=== PATIENT | female | born 1960 | race Caucasian/White ===

== ENCOUNTER 2016-06-01 00:41 | Emergency (ER) | payer MEDICAID ==
--- NOTE | 2016-06-01 01:08 | ED Physician Chart ---
Chief Complaint/HPI - Patient Information Date Seen:: 06/01/16 Time Seen:: 01:00 Chief Complaint:: BODY ACHES History of Present Illness:: THIS IS A 55 YO FEMALE WITH TWO WEEKS OF FEVER ON AND OFF WITH CHILLS. SHE ALSO HAS CHEST CONGESTION WITH NASAL CONGESTION AND SINUS CONGESTION. SHE DENIES VOMITING AND DIARRHEA. SHE DENIES ANY HISTORY OF PNEUMONIA OR T.B. SHE DENIES DIABETES AND HEART DISEASE BUT ADMITS TO HYPERTENSION. Allergies:: Allergies Allergy/AdvReac Type Severity Reaction Status Date / Time No Known Allergies Allergy Verified 12/06/15 10:48 Vitals:: Vital Signs - 8 hr 06/01/16 00:52 Temp 99.9 F HR 135 RR 20 BP 144/83 O2 Sat % 95 Historian:: Patient Review:: Nurse's Note Reviewed Review of Systems - Review of Systems General/Constitutional: Fever, Chills, No weight loss, No weakness, No diaphoresis, No edema, No loss of appetite Skin: No skin lesions, No rash, No bruising Head: No headache, No light-headedness Eyes: No loss of vision, No pain, No diplopia ENT: No earache, Nasal drainage, Sore throat, No tinnitus Neck: No neck pain, No swelling, No thyromegaly, No stiffness, No mass noted Cardio Vascular: No chest pain, No palpitations, No PND, No orthopnea, No edema Pulmonary: SOB, Cough, No sputum, No wheezing GI: No nausea, No vomiting, No diarrhea, No pain, No melena, No hematochezia, No constipation, No hematemesis G/U: No dysuria, No frequency, No hematuria Musculoskeletal: Bone or joint pain, No back pain, No muscle pain Endocrine: No polyuria, No polydipsia Psychiatric: No prior psych history, No depression, No anxiety, No suicidal ideation Hematopoietic: No bruising, No lymphadenopathy Allergic/Immuno: No urticaria, No angioedema Neurological: No syncope, No focal symptoms, No weakness, No paresthesia, Headache, No seizure, No dizziness, No confusion, No vertigo Past Medical History - Past Medical History Obtainable: Yes Past Medical History: HTN Family History: None Social History: Smoker, No Alcohol, No Drug Use Surgical History: None Psychiatricy History: None Medication: Reviewed Family Medical History - Family Member Mother History Unknown: Yes Ethnicity: Non- Living Status: Still Living Hx Family Cancer: No Hx Family Coronary Artery Disease: No Hx Family Congestive Heart Failure: No Hx Family Hypertension: Yes Hx Family Stroke: No Hx Family Diabetes: No Hx Family Seizures: No Hx Family Dementia: No Hx Family AIDS: No Hx Family HIV: No Hx Family COPD: No Hx Family Hepatitis: No Hx Family Psychiatric Problems: No Hx Family Tuberculosis: No Physical Exam - Physical Examination General/Constitutional: Awake, Well-developed, well-nourished, Alert, No distress, GCS 15, Non-toxic appearing, Ambulatory Head: Atraumatic Eyes: Lids, conjuctiva normal, PERRL, EOMI Skin: Nl inspection, No rash, No skin lesions, No ecchymosis, Well hydrated, No lymphadenopathy ENMT: External ears, nose nl, Lips, teeth, gums nl Other ENMT comments:: THE POSTERIOR PHARYNX IS RED AND SWOLLEN THERE IS NASAL CONGESTION AND DRAINAGE Neck: Nontender, Full ROM w/o pain, No JVD, No nuchal rigidity, No bruit, No mass, No stridor Respiratory: Nl effort/Exclusion, Clear to Auscultation Other Respiratory comments:: THERE IS BILATERAL RHONCHI Cardio Vascular: RRR, No murmur, gallop, rubs, NL S1 S2 GI: No tenderness/rebounding/guarding, No organomegaly, No hernia, Normal BS's, Nondistended, No mass/bruits, No McBurney tenderness : No CVA tenderness Extremities: No tenderness or effusion, Full ROM, normal strength in all extremities, No edema, Normal digits & nails Neuro/Psych: Alert/oriented, DTR's symmetric, Normal sensory exam, Normal motor strength, Judgement/insight normal, Mood normal, Normal gait, No focal deficits Misc: normal gait, Normal back, No paraspinal tenderness ED Septic Shock - . Is Septic Shock (SBP<90, OR Lactate>4 mmol\L) present?: No - <6hrs of presentation: Vital Signs: Vital Signs - 8 hr 06/01/16 00:52 Temp 99.9 F HR 135 RR 20 BP 144/83 O2 Sat % 95 Reassessment (Disposition) - Reassessment Reassessment Condition:: Improved - Diagnosis Diagnosis:: ACUTE BRONCHITIS ACUTE PHARYNGITIS - Aftercare/Follow up Instructions Aftercare/Follow-Up Instructions:: Counseled pt regarding lab results/diagnosis & need follow up, Refer to Discharge Instructions, Counseled pt & family regarding lab results/diagnosis & need follow up - Patient Disposition Discharge/Transfer:: Home ED Discharge Plan - Patient Disposition Admit/Discharge/Transfer: PT DISCHARGED HOME Condition at Disposition: Improved
[2016-06-01 01:34] LABS: URINE BILIRUBIN SMALL (NEGATIVE); URINE BLOOD TRACE (NEGATIVE); URINE COLOR YELLOW; URINE GLUCOSE (UA) NEGATIVE (NEGATIVE)
[2016-06-01 01:35] LABS: URINE KETONE TRACE mg/dL (NEGATIVE); URINE PH 5.5; URINE PROTEIN 100 mg/dL (NEGATIVE)
[2016-06-01 01:36] LABS: URINE BACTERIA FEW /hpf (NONE SEEN); URINE EPITHELIAL CELLS MODERATE /lpf (FEW); URINE RBC 0-2 /hpf (0-5); URINE WBC 0-2 /hpf (0-5)
[2016-06-01 01:37] LABS: AMPHETAMINE URINE POSITIVE (NEGATIVE)
[2016-06-01 01:38] LABS: BARBITURATES URINE NEGATIVE (NEGATIVE)
== END 2016-06-01 01:50 | disposition home or self-care (01) ==
LOC: ER 00:41
DX: J20.9 Acute bronchitis, unspecified (principal); J02.9 Acute pharyngitis, unspecified; I10 Essential (primary) hypertension; F17.200 Nicotine dependence, unspecified, uncomplicated
CPT/HCPCS: 99284; 96372 ×2; 80300; 81001; J0696; J2930; Z7502

== ENCOUNTER 2016-06-02 14:51 | Inpatient (IN) | payer MEDICAID ==
--- NOTE | 2016-06-02 15:09 | ED Physician Chart ---
Chief Complaint/HPI - Patient Information Date Seen:: 06/02/16 Time Seen:: 14:59 Chief Complaint:: COUGH AND RESP DISTRESS X 5-6 DAYS History of Present Illness:: History 5-year-old female presents with a 5-6 day history of cough and respiratory distress. The patient has not had fever but did have chills starting yesterday. Patient has no chest pain. Respiratory distress is made worse by exertion. She is a smoker who gave it up one week ago. She has no prior history of CHF, pulmonary embolus, DVT, or cancer. No recent circumstances for immobilization. No peripheral edema. The cough is productive but the patient does not check the color of the sputum. She denies any hemoptysis. Allergies:: Allergies Allergy/AdvReac Type Severity Reaction Status Date / Time No Known Allergies Allergy Verified 12/06/15 10:48 Review of Systems - Review of Systems General/Constitutional: No fever, Chills, No weakness, No diaphoresis, No edema , Loss of appetite Skin: No skin lesions, No rash, No bruising Head: No headache, No light-headedness Eyes: No loss of vision, No diplopia ENT: No earache, No nasal drainage, No sore throat, Other (has congestive and in the nasal region.) Neck: No neck pain, No stiffness Cardio Vascular: No chest pain, No palpitations, No orthopnea, No edema Pulmonary: SOB, Cough, Sputum, Wheezing, Other (no hemoptysis.) GI: No nausea, No vomiting, No diarrhea, Pain (the patient has had pain in the epigastric region she associates with taking azithromycin..), No pain, No hematemesis G/U: No dysuria, No frequency, No hematuria Musculoskeletal: No bone or joint pain, No back pain Endocrine: No polyuria, No polydipsia Psychiatric: No prior psych history, No depression, No suicidal ideation Hematopoietic: No bruising, No lymphadenopathy Allergic/Immuno: No urticaria, No angioedema Neurological: No syncope, No focal symptoms, No weakness, No paresthesia, No headache, No seizure, No confusion, No vertigo Past Medical History - Past Medical History Past Medical History: HTN, Other (no history of CAD, CHF or DVT.) Social History: Smoker, No Drug Use, Employment:: No illicit drugs and occasional alcohol. Surgical History: None Psychiatricy History: None (patient takes an SHELLI inhibitor for her hypertension. ) Family Medical History - Family Member Mother History Unknown: Yes Ethnicity: Non- Living Status: Still Living Hx Family Cancer: No Hx Family Coronary Artery Disease: No Hx Family Congestive Heart Failure: No Hx Family Hypertension: Yes Hx Family Stroke: No Hx Family Diabetes: No Hx Family Seizures: No Hx Family Dementia: No Hx Family AIDS: No Hx Family HIV: No Hx Family COPD: No Hx Family Hepatitis: No Hx Family Psychiatric Problems: No Hx Family Tuberculosis: No Physical Exam - Physical Examination General/Constitutional: Well-developed, well-nourished, Alert, Non-toxic appearing, Ambulatory Other Gen/Cons comments:: The patient does not appear to be in respiratory distress and speaks in full sentences. Head: Atraumatic Eyes: Lids, conjuctiva normal, PERRL, EOMI Skin: Nl inspection, No rash, No skin lesions, No ecchymosis, No lymphadenopathy ENMT: External ears, nose nl, Lips, teeth, gums nl, Oropharynx nl, Tonsils nl Neck: Nontender, Full ROM w/o pain, No JVD, No nuchal rigidity, No mass, No stridor Respiratory: Nl effort/Exclusion Other Respiratory comments:: Patient has prolongation of the expiratory phase with associated diffuse wheezing throughout the lung crespo. Cardio Vascular: RRR, No murmur, gallop, rubs, NL S1 S2 Other Cardio Vascular comments:: Pulses are adequate in all 4 extremities. GI: No organomegaly, No hernia, Normal BS's, Nondistended, No mass/bruits, No McBurney tenderness Other GI comments:: Patient has mild tenderness without associated rebound or guarding in the epigastric region. : No CVA tenderness Extremities: No tenderness or effusion, Full ROM, normal strength in all extremities, No edema, Normal digits & nails Other Extremities comments:: Tenderness and no Deyanira's sign. Neuro/Psych: Alert/oriented, Normal sensory exam, Normal motor strength, Judgement/insight normal, Mood normal, Normal gait, No focal deficits Misc: Normal back, No paraspinal tenderness Labs/Radiology/EKG Results - Lab Results Results: Single view AP chest x-ray: This x-ray was reviewed by me and there is an equivocal infiltrate in the left lower lung zone. I requested that the radiologist review the chest x-ray and after doing so he recommended a 2 view repeat chest x-ray. The 2 view chest x-ray he felt it was more likely than not that the patient had an infiltrate in the left lower lung zone. No cardiomegaly and no CHF. No calcifications in the aortic arch and no mediastinal widening. No pneumothorax. Laboratory Tests 06/02/16 06/02/16 06/02/16 17:15 17:15 18:20 WBC 22.2 H* RBC 5.19 H Hgb 14.2 Hct 43.0 MCV 82.8 MCH 27.4 MCHC Differential 33.1 RDW 13.5 Plt Count 443 H MPV 8.5 Band Neutrophils % 10 Neutrophils (Manual) 75 Lymphocytes 10 L Monocytes 5 Eosinophils 0 Basophils 0 Platelet Estimate ADEQUATE Platelet Morphology NORMAL RBC Morph Micro Appear NORMAL Whole Bld Lactic Acid 1.98 C-Reactive Protein 8.20 H Influenza A (Rapid) Influenza B (Rapid) 06/02/16 18:50 WBC RBC Hgb Hct MCV MCH MCHC Differential RDW Plt Count MPV Band Neutrophils % Neutrophils (Manual) Lymphocytes Monocytes Eosinophils Basophils Platelet Estimate Platelet Morphology RBC Morph Micro Appear Whole Bld Lactic Acid C-Reactive Protein Influenza A (Rapid) NEG FOR INF A Influenza B (Rapid) NEG FOR INF B INTERPRETATION: marked leukocytosis in the 22,000 range. Whole blood lactic acid less than 2.0. Suggestive of sepsis but not septic shock. Assessment - Assessment General Assessment: CASE SUMMARY: Following the emergency department patient had no tachycardia or tachypnea. Blood pressure was in the high range and her temperature was 97.0. On evaluation of chest x-ray infiltrate was discovered in the left lower lung zone. A CBC was sent at approximately 5:40 PM received a call from the lab that her white blood cell count was in the 22,000 range. At that point in time a lactic acid was ordered and normal saline was ordered at a rate of 30 mL per KG over a two-hour period. There was difficulty obtaining an IV and the patient was given 2 g of ceftriaxone IM. The patient has already been on azithromycin which was started yesterday. The patient's primary physician will be contacted and arrangements will be made to admit the patient to a medical/surgical bed for further diagnostic evaluation and treatment. The patient felt much better after treated with nebulized albuterol and Atrovent. Pulse ox in the low 90's on room air. With supplemental oxygen pulse ox was in the high 90's. MDM for RESPIRATORY DISTRESS and COUGH: NOT CHF based on pt's history and exam and CXR didn't show pulmonary edema. NOT pulmonary embolism based on history and exam. Well's score of 1.5 (Pulse >100) is low risk for PE. NOT Pneumothorax basd othn negative CXR. ED Septic Shock - . Is Septic Shock (SBP<90, OR Lactate>4 mmol\L) present?: No Reassessment (Disposition) - Reassessment Reassessment Condition:: Improved - Diagnosis Diagnosis:: PNEUMONIA WITH LT LOWER LOB INFILTRATE. PROBABLE COPD. - Patient Disposition Discharge/Transfer:: Acute Care w/in this hosp ED Discharge Plan - Patient Disposition Admit/Discharge/Transfer: Acute Care w/in this hosp
[2016-06-02] MEDS ORDERED: Albuterol/Ipratropium Neb 3 ML AERS HHN ONE ×2 (15:17→15:23)
--- NOTE | 2016-06-02 16:42 | Diagnostic Imaging Report ---
Portable chest x-ray HISTORY: Cough, dyspnea The heart size is normal. There is faint increased density over the periphery of the left lower lung. This may be related to overlying breast tissue. However, faint infiltrate cannot be excluded. Standard PA and lateral views recommended for further assessment. The hilar or mediastinal abnormalities. IMPRESSION: 1. Faint increased density over the periphery of the left lower lung. The finding may be associated with overlying breast tissue. However, faint infiltrate cannot be excluded. If possible, standard PA and lateral views recommended.
--- NOTE | 2016-06-02 16:43 | Diagnostic Imaging Report ---
Chest x-ray (2 views, PA/lateral) HISTORY: Cough, shortness of breath The exam demonstrates faint infiltrate within the lingular region of the left lung. Findings consistent with pneumonia. The heart size is normal. No hilar or mediastinal abnormalities. IMPRESSION: 1. Faint infiltrate within the lingular region of the left lung consistent with pneumonia. Clinical correlation is needed.
[2016-06-02 17:38] LABS: HEMOGLOBIN 14.2 gm/dL (11.7-15.5); MEAN CELL VOLUME 82.8 fl (81-100); MEAN CORPUSCULAR HEMOGLOBIN 27.4 pg (27.0-31.0); MEAN CORPUSCULAR HGB CONC 33.1 pg (28.0-36.0); MEAN PLATELET VOLUME 8.5 fl; PLATELET COUNT 443 Th/cmm (150-400); RED BLOOD COUNT 5.19 Mil/cmm (3.80-5.10); RED CELL DISTRIBUTION WIDTH 13.5 % (11.5-20.0)
[2016-06-02 17:45] LABS: WHITE BLOOD COUNT 22.2 Th/cmm (4.8-10.8)
[2016-06-02 17:55] LABS: TOTAL CELLS COUNTED 100
[2016-06-02 17:58] LABS: BAND NEUTROPHILE 10 % (0-10); BASOPHIL 0 % (0-3); EOSINOPHIL 0 % (0-5); NEUTROPHILS 75 % (40-80); PLATELET ESTIMATE ADEQUATE (NORMAL); PLATELET MORPHOLOGY NORMAL (NORMAL)
[2016-06-02] MEDS ORDERED: SODIUM CHLORIDE 0.9% IV ONE (18:30)
[2016-06-02] MEDS: Albuterol/Ipratropium Neb 3 ML AERS HHN SCH ×2 (19:41→23:07)
[2016-06-02] MEDS: methylPREDNISolone SS 40 mg Vial IVP SCH (21:32)
[2016-06-02] MEDS: D5-0.45NS 1,000 ML IV SCH (21:33)
--- NOTE | 2016-06-02 23:23 | History & Physical ---
HISTORY OF PRESENT ILLNESS: The patient was admitted through the Emergency Room to the [facility] Med/Surg on 06/02/2016. This patient is known to my clinic and last seen was on 05/21/2016. She came to our clinic for followup on her labs. At that time, the patient did not have any symptoms of cough and no chills, no fever and she just came there for the lab results and which was given. The patient today was seen in the Emergency Room with complaints of cough for the last 4 days, shortness of breath and chills, but there is no history of fever. In the Emergency Room, the workup was done. An x-ray showed left lower lobe pneumonia and also the patient's white cell counts were elevated. At that time, sepsis workup was done and blood cultures were also sent to the lab and the patient was given antibiotic, Rocephin and Zithromax and the patient was admitted to the Med/Surg for the continuation of her care. PAST MEDICAL HISTORY: Significant for hypertension and mild hyperlipidemia. For hypertension, she was taking enalapril, but she did not give us the dose, but everytime she came to the clinic, her blood pressure was high and she was saying that she was taking the medications, but it looks like the patient is noncompliant because her blood pressure is always high. SOCIAL HISTORY: She is a smoker. She smokes about 6-10 cigarettes a day since 2000. She had 3 pregnancies, but also had 3 induced abortions, no living children. FAMILY HISTORY: Her mother has hypertension and maternal grandmother had a stroke. ALLERGIES: She has no known allergies. REVIEW OF SYSTEMS: The patient today had no constitutional symptoms of fever, but she had chills and she also complained of cough and shortness of breath. Other than that, there is no chest pain, no palpitations, no nausea, no vomiting, no dysuria, no polyuria and no musculoskeletal issues except generalized pain and generalized weakness was noted. PHYSICAL EXAMINATION: GENERAL: She is a well-developed obese lady. VITAL SIGNS: Temperature 97.9, pulse 90, respirations 18, blood pressure 154/86 and saturating 96-98% on the room air. Her height is 68 inches and weight is 247 pounds and her BMI is 37.55. Last menstrual period was on 05/18/2016. HEENT: Head is atraumatic and normocephalic. Eyes: Pupils are reactive to light equally and bilaterally. Ears, nose, mouth and throat was normal. NECK: Supple and no JVD noted. LUNGS: Plus or minus rales noted bilaterally and the rhonchi was heard and 1+ wheezing on the left side of the lung more was appreciated. CARDIOVASCULAR: S1, S2 heard. ABDOMEN: Soft. Bowel sounds are present. EXTREMITIES: No clubbing, no cyanosis and no edema. The IV access was a kind of difficult and she has an IV put in, in the Emergency Room. NEUROLOGIC: Nonfocal examination. PSYCHIATRIC: History is negative. LABORATORY DATA: The white cells were elevated to 22,000. Chest x-ray showed consolidation in the left lower lobe. We added the influenza A and B and also mycoplasma IgM and CRP to the panel and the results are still pending. ASSESSMENT: At this time: 1. Left lower lobe pneumonia. 2. Leukocytosis. 3. Shortness of breath. 4. Cough. 5. Hypertension. 6. Mild hyperlipidemia. 7. Obesity. PLAN: The plan is to admit her to the Med/Surg. We will start her on the IV fluids D5 half NS at 80 mL an hour. Breathing treatments with albuterol and Atrovent will be given every 4 hours. Solu-Medrol 20 mg twice a day intravenous will also be started. Rocephin 2 g will be given every 24 hours. Zithromax 500 mg every day will be given intravenous and Tylenol as needed for the pain or the fever. Dr. Griffin will be consulted for the Pulmonology and also for the pneumonia treatment. The plan is to continue her antibiotics and see how the patient reacts and once the resolution is noted and once condition is stable, she will be discharged home on oral antibiotics. JOB# [id number]
--- NOTE | 2016-06-03 02:17 | Admit Criteria Form ---
Admit Criteria Forms - Admit Criteria Diagnosis: PNEUMONIA, COMMUNITY ACQUIRED Clinical Indications for Admission to Inpatient Care ( Place 'X' for any and all applicable criteria): Admission is indicated for ANY ONE of the following (1)(2)(3): [ ]I. Hypoxemia indicated by ANY ONE of the following: [ ]a) Oxygen saturation less than 90% while breathing room air [ ]b) PO2 less than 60 mm Hg (8.0 kPa) while breathing room air [ ]c) Chronic lung disease with significant deterioration from baseline oxygenation [X ]II. Appropriate diagnostic testing and treatment unavailable in outpatient or recovery facility (eg,testing or infection control measures unavailable(10) [ ]III. Moderate-risk or high-risk category patients (Pneumonia Severity Index (PSI) class IV or V, or CURB-65 score of 3 or greater). [ ]IV. Outpatient treatment failure as indicated by ANY ONE of the following(9) : [ ]a) Failure to respond to antibiotic (eg, resistant organism) [ ]b) Clinically significant adverse effects from medication (eg, vomiting) [ ]c) Complications of pneumonia (eg, empyema, bacteremia) [ ]d) Significant worsening of comorbid cond necessitating inpatient care (eg, chronic heart failure) [ ]V. Intermediate-risk category patients (eg, PSI class III or CURB-65 score 2) who do not improve with initial therapy and observation. [ ]. Immunocompromised patients (eg, AIDS, chronic steroid use) at moderate or high risk based on clinical evaluation. [ ]VII. Complicated pleural effusions (eg, exudative, loculated) [ ]VIII.Hemodynamic instability [ ] IX. Altered mental status that is severe or persistent. [ ]X. Dehydration that is severe or persistent. [ ]XI. Bacteremia [ ]XII. Respiratory finding (eg. tachypnea) that do not respond to outpatient or observation care treatment Extended stay beyond goal length of stay may be needed for (20) [ ]a) Unclear diagnosis [ ]b) Pleural disease [ ]c) Severe pneumonia or treatment failure (25 [ ]d) Respiratory failure (anticipate invasive or noninvasive ventilatory support) [ ]e) Abnormal serum electrolytes (serum Na concentration less than 135 mEq/L (mmol/L) (32)(33) [ ]f) Clinically significant comorbid illness (eg, heart failure, atrial fibrillation with rapid heart rate, alcohol withdrawal, renal insufficiency)(34)(35) [ ]g) Comorbid acute exacerbation of COPD(36) [ ]h) Concomitant diagnosis of malignancy that may be associated with malnutrition, immunologic impairment, or bronchial obstruction. [ ]i) Concomitant altered mental status [ ]j) Culture-identified Gram-negative or antibiotic-resistant organism (eg, Pseudomonas, methicillin-resistant Staphylococcus aureus)(30) [ ]k) Healthcare-associated pneumonia The original [facility] content created by [employer] has been revised. The portions of the content which have been revised are identified through the use of italic text or in bold, and [facility] has neither reviewed nor approved the modified material. All other unmodified content is copyright [facility]. Please see references footnoted in the original [facility] edition 2016
[2016-06-03] MEDS: Albuterol/Ipratropium Neb 3 ML AERS HHN SCH ×6 (02:55→22:29)
[2016-06-03] MEDS: methylPREDNISolone SS 40 mg Vial IVP SCH ×2 (09:09→21:14)
[2016-06-03] MEDS: D5-0.45NS 1,000 ML IV SCH (09:42)
[2016-06-03] MEDS: Azithromycin 500 MG in Sodium Chloride 0.9% 250 ML IV SCH (21:15)
[2016-06-04] MEDS: Albuterol/Ipratropium Neb 3 ML AERS HHN SCH ×6 (03:25→23:08)
[2016-06-04] MEDS: D5-0.45NS 1,000 ML IV SCH (04:13)
[2016-06-04 05:45] LABS: HEMATOCRIT 40.8 % (35.0-45.0); HEMOGLOBIN 13.6 gm/dL (11.7-15.5); MEAN CELL VOLUME 82.2 fl (81-100); MEAN CORPUSCULAR HEMOGLOBIN 27.3 pg (27.0-31.0); MEAN CORPUSCULAR HGB CONC 33.3 pg (28.0-36.0); MEAN PLATELET VOLUME 8.2 fl; PLATELET COUNT 478 Th/cmm (150-400); RED BLOOD COUNT 4.97 Mil/cmm (3.80-5.10); RED CELL DISTRIBUTION WIDTH 13.5 % (11.5-20.0)
[2016-06-04 05:54] LABS: WHITE BLOOD COUNT 16.9 Th/cmm (4.8-10.8)
[2016-06-04 06:15] LABS: BAND NEUTROPHILE 6 % (0-10); NEUTROPHILS 78 % (40-80); PLATELET ESTIMATE INCREASED PLATELETS (NORMAL); PLATELET MORPHOLOGY NORMAL (NORMAL); TOTAL CELLS COUNTED 100
[2016-06-04 06:48] LABS: ALKALINE PHOSPHATASE 94 U/L (34-104); ANION GAP 7.9 (7.0-16.0); BILIRUBIN,TOTAL 0.2 mg/dL (0.3-1.0); BUN - UREA NITROGEN 15 mg/dL (7-25); BUN/CREATININE RATIO 21.4; CALCIUM SERUM 9.9 mg/dL (8.6-10.3); CARBON DIOXIDE 26.2 mEq/L (21.0-31.0); CHLORIDE 104 mEq/L (98-107); CREATININE - SERUM 0.7 mg/dL (0.6-1.2); GLUCOSE 257 mg/dL (70-105); POTASSIUM SERUM 5.1 mEq/L (3.5-5.1); SGOT 29 U/L (13-39); SGPT/ALT 72 U/L (7-52); SODIUM SERUM 133 mEq/L (136-145)
[2016-06-04] MEDS: methylPREDNISolone SS 40 mg Vial IVP SCH ×2 (09:00→21:23)
--- NOTE | 2016-06-04 09:58 | Diagnostic Imaging Report ---
CHEST X-RAY: 2 views History: Shortness of breath COMPARISON: 06/02/2016 FINDINGS: Persistent faint infiltrate of the left lower lung zone is noted slightly decreased since prior exam. Heart size is normal. No pleural effusions. IMPRESSION: Persistent faint infiltrate of the left lower lung zone, slightly increased since prior exam. Continued follow-up is recommended to ensure complete resolution.
--- NOTE | 2016-06-04 14:19 | Consultation ---
Thank you very much for this consultation. HISTORY OF PRESENT ILLNESS: This is a 56-year-old female complaining of some cold symptoms, cough, congestion and started having some shortness of breath and more phlegm production presented to the Emergency Room and admitted for pneumonia. The patient feels better today and less cough and congestion, can take a deeper breath. The patient has a history of smoking for 20 years about a pack a day. States she has been smoking for the last couple of days and she wants to quit. PAST MEDICAL HISTORY: As above. SOCIAL HISTORY: As above. PHYSICAL EXAMINATION: GENERAL: Awake, alert, not in acute distress. VITAL SIGNS: Temperature 98.0, pulse 94, respirations 20, blood pressure 156/76, saturation is 95%. HEENT: Atraumatic, normocephalic. Pupils react to light and accommodation. Ears, nose and throat normal. NECK: Supple. CHEST: There are good breath sounds, no wheezing or crackles. HEART: Regular rate and rhythm. No murmurs. ABDOMEN: Soft. EXTREMITIES: No edema. LABORATORY DATA: WBCs is 22.2, hematocrit 43.0, platelets 443. IMPRESSION: 1. This is a 56-year-old female with pneumonia, left lower lobe on the chest x-ray. 2. Possible underlying chronic obstructive pulmonary disease. PLAN: Agree with IV antibiotics, nebulizer treatment and followup chest x-ray and white count out and if improved by tomorrow, hopefully can be discharged home on oral antibiotics. JOB# [id number] ANDRÉS
[2016-06-04] MEDS: Azithromycin 500 MG in Sodium Chloride 0.9% 250 ML IV SCH (21:20)
--- NOTE | 2016-06-04 22:28 | Cardiology ---
The patient of Dr. Pipo Castillo. M-MODE ECHOCARDIOGRAM: Mitral Valve: Anterior leaflet of mitral valve shows normal excursion, EF velocity. Posterior leaflet of the mitral valve shows normal excursion. Left ventricular posterior wall shows increased thickness, normal excursion. Interventricular septum shows increased thickness, normal excursion, hypertrophy of the left ventricle, ejection fraction 65%. Left atrium normal. Aortic root shows normal dimension, normal excursion of aortic leaflets. CONCLUSION: Hypertrophy of the left ventricle, ejection fraction 65%. 2D ECHO: Long axis view showed normal sized left ventricle with normal wall motion, hypertrophy of the left ventricle. Left atrium normal. Aortic root shows normal dimension, normal excursion of aortic leaflets. Short axis view of mitral valve normal short axis, aortic valve normal. Apical four chamber view showed normal sized left ventricle with hypertrophy of the left ventricle. Left atrium normal. Right ventricular cavity, right atrium normal, no pericardial effusion. CONCLUSION: Hypertrophy of the left ventricle, ejection fraction 65%. Doppler study showed trace mild ____, mild tricuspid regurgitation, prominent A wave consistent with full compliance of left ventricle. JOB# [id number]
[2016-06-05] MEDS: Albuterol/Ipratropium Neb 3 ML AERS HHN SCH ×3 (03:07→11:08)
[2016-06-05 06:14] LABS: HEMATOCRIT 44.2 % (35.0-45.0); HEMOGLOBIN 14.7 gm/dL (11.7-15.5); MEAN CELL VOLUME 82.2 fl (81-100); MEAN CORPUSCULAR HEMOGLOBIN 27.4 pg (27.0-31.0); MEAN CORPUSCULAR HGB CONC 33.3 pg (28.0-36.0); MEAN PLATELET VOLUME 8.2 fl; PLATELET COUNT 533 Th/cmm (150-400); RED BLOOD COUNT 5.37 Mil/cmm (3.80-5.10); RED CELL DISTRIBUTION WIDTH 13.6 % (11.5-20.0)
[2016-06-05 06:47] LABS: BAND NEUTROPHILE 5 % (0-10); METAMYELOCYTE 3 % (0-0); NEUTROPHILS 67 % (40-80); TOTAL CELLS COUNTED 100
[2016-06-05 06:48] LABS: PLATELET ESTIMATE INCREASED PLATELETS (NORMAL); PLATELET MORPHOLOGY GIANT PLATELETS SEEN (NORMAL)
--- NOTE | 2016-06-05 08:10 | Consultation ---
The patient of Dr. Castillo HISTORY AND PHYSICAL: This is a 56-year-old obese female patient who came to the Emergency Room because of shortness of breath and cough with expectoration. The patient was found to have left lower lobe pneumonia. During the hospital stay, the patient had uncontrolled hypertension and hence Cardiology consult was requested. PAST MEDICAL HISTORY: Hypertension, obesity, hyperlipidemia, and nicotine dependence. FAMILY HISTORY: Unremarkable. SOCIAL HISTORY: The patient smokes about half a pack a day. ALLERGIES: No allergies. PHYSICAL EXAMINATION: VITAL SIGNS: Blood pressure 154/94, pulse 70, and respirations 20. HEAD: Normocephalic. No lumps or bumps. EYES: Pupils are equal and reactive to light. Fundi show AV nicking, sclerae white, and conjunctivae pink. NECK: Carotid 2+. Normal upstroke. JVD flat. Thyroid not palpable. Lymph nodes not palpable. CHEST: Shows increased AP diameter. No kyphosis or scoliosis. LUNGS: Bilateral bronchovesicular breath sounds. No wheezing or rhonchi, prolonged expiration. HEART: PMI fifth intercostal space with lateral to midclavicular line. S1, S2, S3, S4, systolic murmur, grade 2/6, lower left sternal border without radiation. ABDOMEN: Soft. Liver and spleen not palpable. No organomegaly. Bowel sounds active. NEUROLOGIC: Unremarkable. EXTREMITIES: Peripheral pulses 2+. No pedal edema. CLINICAL IMPRESSION: Uncontrolled hypertension, left lower lobe pneumonia, obesity, hyperlipidemia, and nicotine dependence. PLAN: We will start the patient on Procardia XL 30 mg daily for blood pressure control. The patient can be discharged on oral antibiotics. [facility]# [id number]
[2016-06-05] MEDS: methylPREDNISolone SS 40 mg Vial IVP SCH (08:47)
[2016-06-05] MEDS ORDERED: NIFEdipine 30 mg ER Tab PO SCH (09:00)
--- NOTE | 2016-06-05 09:55 | Diagnostic Imaging Report ---
History: Shortness of breath Findings: Heart size normal. No infiltrates or effusions. Impression: No acute cardiopulmonary pathology. The density projecting over the left lower lung zone is not seen on the current exam
--- NOTE | 2016-06-06 03:19 | Progress Notes ---
Patient of Dr. Pipo Castillo. SUBJECTIVE: This is a 56-year-old obese female patient who was admitted for shortness of breath, cough with expectoration, left lower lobe pneumonia and uncontrolled hypertension. The patient has still shortness of breath and cough, which has improved. OBJECTIVE: VITAL SIGNS: Blood pressure 134/70, pulse 70, respirations 20. LUNGS: wheezing, rhonchi. HEART: Regular rhythm, S1, S2. No S3, S4. ABDOMEN: Soft. EXTREMITIES: No pedal edema. ASSESSMENT: 1. Left lower lobe pneumonia, better. 2. Hypertension, controlled. 3. Obesity. 4. Hyperlipidemia. 5. Nicotine dependence. PLAN: The patient is stable for discharge. JOB# [id number]
--- NOTE | 2016-06-06 07:21 | Discharge Summary ---
This patient was admitted with the main diagnoses of left lower lobe pneumonia, shortness of breath, cough, and leukocytosis and other complaints also had uncontrolled hypertension, probably due to the noncompliance and smoker and COPD and mild hyperlipidemia and obesity. HOSPITAL COURSE: This patient was admitted to the Med/Surg and was consulted coffee sommelier, Dr. Griffin and also the patient had a history of tachycardia and uncontrolled hypertension. At that point, I also sought spindle tester's consult Dr. Nathalia Gallegos and when she was admitted, she was having respiratory distress and chills, but no fever. Hence, the patient was evaluated in the Emergency Room. Chest x-ray showed left lower lobe pneumonia. Influenza A and B were negative and there was elevated white cell count of ____. CRP was also elevated to 8.2 and hence the patient was admitted here and started on the antibiotics, Zithromax IV, and also Rocephin 2 g q.24h., and breathing treatments were given for her COPD and advised to refrain smoking and during her stay here, the patient did improve with medications and there was one option if the patient still remained ill, we wanted to transfer her to the contracted hospital in [facility], but the patient was not willing to go there and hence the patient was detained here and for her uncontrolled hypertension, she was started on multiple hypertensive medications, Atenolol 25, hydrochlorothiazide 25, and Norvasc 5 mg daily, and Procardia 30 mg XL daily, and now today at the time of discharge, her blood pressure seemed to be controlled with that. She was also getting the breathing treatments with Atrovent and albuterol, and she was on Solu-Medrol. The repeat WBC showed decreased trend. ____ day, it was 16,000 WBCs and third day it was 9, and the CRP was also decreased to 1.2. The patient remained afebrile and did not have any distress. Repeat chest x-ray today showed resolved pneumonia, and hence, the clearance was given by spindle tester and also the coffee sommelier, and hence, the patient was discharged today. PHYSICAL EXAMINATION: VITAL SIGNS: Temperature 96.6, blood pressure 132/93, pulse 89, respirations 18, and saturating 96% on room air. HEENT: Head is atraumatic and normocephalic. Eyes: Pupils are reactive to light equally bilaterally. Ears are normal. Nose is normal. Mouth and throat were normal. NECK: Supple. No JVD. LUNGS: Occasional wheezing is found more on the left side and plus or minus rhonchi are heard, but much better than at the time of admission. HEART: S1 and S2 heard. ABDOMEN: Soft. Bowel sounds are present. EXTREMITIES: No clubbing and no cyanosis. Upper extremities, right extremity is slightly edematous secondary to infiltrated IV, which was removed ____. NEUROLOGIC: Nonfocal. DISCHARGE MEDICATIONS: The patient was discharged on the following medications; atenolol 25 mg, hydrochlorothiazide 25 mg, Norvasc 5 mg, Procardia-XL 30 mg for the hypertension and advised to stay off the lisinopril and coffee sommelier also prescribed her on Advair 250/50 mcg one puff daily and Ventolin and Zithromax 250 mg for the next 7 days and also prednisone 10 mg for the 7 days. So with these medications, the patient was discharged home to be followed up in my clinic on Tuesday. ____. DISCHARGE DIAGNOSES: Left lower lobe pneumonia, leukocytosis resolved. Shortness of breath, resolved. Chronic obstructive pulmonary disease and hypertension, controlled. Obesity. Smoker. The patient is advised to follow up with me in the clinic and also with the spindle tester for her hypertension. JOB# [id number]
== END 2016-06-05 19:01 | disposition home or self-care (01) | DRG 139 ==
LOC: ER 14:51 → MSI 18:25
PROVIDERS: ADMIT General Practice; ATTEND General Practice
DX: J18.9 Pneumonia, unspecified organism (principal); J44.9 Chronic obstructive pulmonary disease, unspecified; I10 Essential (primary) hypertension; E78.5 Hyperlipidemia, unspecified; E66.9 Obesity, unspecified; F17.210 Nicotine dependence, cigarettes, uncomplicated; Z91.14 Patient's other noncompliance with medication regimen; Z68.37 Body mass index [BMI] 37.0-37.9, adult
CPT/HCPCS: 36415-UA; 71010-TC; 71020-TC; 80053-TC; 83036-90; 83605; 85007-TC; 85027-TC; 86141-TC; 86738-90; 87804-TC; 94640; 94760; J0456; J0696; J2001; J2920

== ENCOUNTER 2016-07-07 21:50 | Emergency (ER) | payer MEDICAID ==
--- NOTE | 2016-07-07 22:15 | ED Physician Chart ---
Chief Complaint/HPI - Patient Information Date Seen:: 07/07/16 Time Seen:: 22:52 Chief Complaint:: leg swelling History of Present Illness:: 56-year-old female with acute, worsening, constant, moderate, left lower extremity swelling 4 days. Has associated slight pain over the dorsum of the foot. No apparent injury. Allergies:: Allergies Allergy/AdvReac Type Severity Reaction Status Date / Time No Known Allergies Allergy Verified 07/07/16 21:52 Historian:: Patient Review:: Nurse's Note Reviewed Review of Systems - Review of Systems Other: Complete system review otherwise unremarkable except as noted in HPI. Past Medical History - Past Medical History Past Medical History: HTN Family History: None Social History: Non Smoker, No Alcohol, No Drug Use, Single Surgical History: None Psychiatricy History: None Medication: Reviewed Family Medical History - Family Member Mother History Unknown: Yes Ethnicity: Non- Living Status: Still Living Hx Family Cancer: No Hx Family Coronary Artery Disease: No Hx Family Congestive Heart Failure: No Hx Family Hypertension: Yes Hx Family Stroke: No Hx Family Diabetes: No Hx Family Seizures: No Hx Family Dementia: No Hx Family AIDS: No Hx Family HIV: No Hx Family COPD: No Hx Family Hepatitis: No Hx Family Psychiatric Problems: No Hx Family Tuberculosis: No Physical Exam - Physical Examination Other:: INITIAL VITAL SIGNS: Reviewed by me GENERAL: Alert and interactive. No acute distress HEAD: Head is normocephalic and atraumatic EYES: EOMI. . No scleral icterus. No conjunctival injection ENT: Moist mucous membranes. NECK: Supple. No masses. Full range of motion RESPIRATORY: No tachypnea. Clear breath sounds bilaterally. No wheezing, rales, or rhonchi CV: Regular rate and rhythm. No murmurs, rubs, or gallops ABDOMEN: Soft, non-distended, non-tender. No guarding. No rebound. No masses. EXTREMITIES: No deformity. No cyanosis. Bilateral lower extremity edema worse on the left than right. +1 pitting.. SKIN: Warm and dry. No obvious rashes. NEUROLOGIC: Alert and oriented. Face is symmetric. Speech is normal. Moves all extremities equally. Motor and sensory distally intact. Labs/Radiology/EKG Results - Lab Results Results: Lab Results 07/07/16 07/07/16 07/07/16 Range/Units 22:12 22:12 22:12 WBC 10.3 D (4.8-10.8) Th/cmm RBC 4.92 (3.80-5.10) Mil/cmm Hgb 13.5 (11.7-15.5) gm/dL Hct 40.8 (35.0-45.0) % MCV 82.9 (81-100) fl MCH 27.4 (27.0-31.0) pg MCHC Differential 33.1 (28.0-36.0) pg RDW 13.4 (11.5-20.0) % Plt Count 408 H D (150-400) Th/cmm MPV 7.9 fl Neutrophils % 57.8 (40.0-80.0) % Lymphocytes % 32.2 (20.0-50.0) % Monocytes % 7.9 (2.0-10.0) % Eosinophils % 2.1 (0.0-5.0) % Basophils % 0.0 (0.0-2.0) % D-Dimer 204 (100-400) ng/mL Sodium 139 (136-145) mEq/L Potassium 3.4 L (3.5-5.1) mEq/L Chloride 102 (98-107) mEq/L Carbon Dioxide 27.6 (21.0-31.0) mEq/L Anion Gap 12.8 (7.0-16.0) BUN 28 H (7-25) mg/dL Creatinine 1.0 (0.6-1.2) mg/dL Est GFR ( Amer) > 60.0 (>90) ml/min Est GFR (Non-Af Amer) > 60.0 ml/min BUN/Creatinine Ratio 28.0 Glucose 118 H (70-105) mg/dL Calcium 10.8 H (8.6-10.3) mg/dL Total Bilirubin 0.3 (0.3-1.0) mg/dL AST 16 (13-39) U/L ALT 18 (7-52) U/L Alkaline Phosphatase 97 (34-104) U/L B-Natriuretic Peptide (5.0-100.0) pg/mL Total Protein 7.9 (6.0-8.3) gm/dL Albumin 4.4 (3.7-5.3) gm/dL Globulin 3.5 gm/dL Albumin/Globulin Ratio 1.3 (1.0-1.8) Urine Source Urine Color Urine Clarity (CLEAR) Urine pH Ur Specific [place] (1.005-1.030) Urine Protein (NEGATIVE) mg/dL Urine Glucose (UA) (NEGATIVE) mg/dL Urine Ketones (NEGATIVE) mg/dL Urine Blood (NEGATIVE) Urine Nitrate (NEGATIVE) Urine Bilirubin (NEGATIVE) Urine Urobilinogen (0.2 - 1.0) E.U./dL Ur Leukocyte Esterase (NEGATIVE) Urine RBC (0-5) /hpf Urine WBC (0-5) /hpf Ur Epithelial Cells (FEW) /lpf Urine Bacteria (NONE SEEN) /hpf 07/07/16 07/07/16 Range/Units 22:12 22:20 WBC (4.8-10.8) Th/cmm RBC (3.80-5.10) Mil/cmm Hgb (11.7-15.5) gm/dL Hct (35.0-45.0) % MCV (81-100) fl MCH (27.0-31.0) pg MCHC Differential (28.0-36.0) pg RDW (11.5-20.0) % Plt Count (150-400) Th/cmm MPV fl Neutrophils % (40.0-80.0) % Lymphocytes % (20.0-50.0) % Monocytes % (2.0-10.0) % Eosinophils % (0.0-5.0) % Basophils % (0.0-2.0) % D-Dimer (100-400) ng/mL Sodium (136-145) mEq/L Potassium (3.5-5.1) mEq/L Chloride (98-107) mEq/L Carbon Dioxide (21.0-31.0) mEq/L Anion Gap (7.0-16.0) BUN (7-25) mg/dL Creatinine (0.6-1.2) mg/dL Est GFR ( Amer) (>90) ml/min Est GFR (Non-Af Amer) ml/min BUN/Creatinine Ratio Glucose (70-105) mg/dL Calcium (8.6-10.3) mg/dL Total Bilirubin (0.3-1.0) mg/dL AST (13-39) U/L ALT (7-52) U/L Alkaline Phosphatase (34-104) U/L B-Natriuretic Peptide 21.6 (5.0-100.0) pg/mL Total Protein (6.0-8.3) gm/dL Albumin (3.7-5.3) gm/dL Globulin gm/dL Albumin/Globulin Ratio (1.0-1.8) Urine Source CLEAN C Urine Color YELLOW Urine Clarity SLIGHT HAZY (CLEAR) Urine pH 5.5 Ur Specific [place] (1.005-1.030) Urine Protein NEGATIVE (NEGATIVE) mg/dL Urine Glucose (UA) NEGATIVE (NEGATIVE) mg/dL Urine Ketones NEGATIVE (NEGATIVE) mg/dL Urine Blood TRACE (NEGATIVE) Urine Nitrate NEGATIVE (NEGATIVE) Urine Bilirubin NEGATIVE (NEGATIVE) Urine Urobilinogen 0.2 (0.2 - 1.0) E.U./dL Ur Leukocyte Esterase NEGATIVE (NEGATIVE) Urine RBC 0-2 (0-5) /hpf Urine WBC 0-2 (0-5) /hpf Ur Epithelial Cells FEW (FEW) /lpf Urine Bacteria FEW (NONE SEEN) /hpf - Radiology Results Results: Ultrasound venous Doppler left lower extremity No DVT ED Septic Shock - . Is Septic Shock (SBP<90, OR Lactate>4 mmol\L) present?: No Reassessment (Disposition) - Reassessment Reassessment:: Labs and ultrasound are unremarkable. No apparent DVT. D-dimer is normal. No sign of cellulitis. Patient most likely has dependent edema. Although she does take amlodipine which also may be the cause of the edema. Suggested raising leg while at rest. This discussed also more mechanical walking. Follow -up PCP 1-2 days. Return to ER precautions were given. Patient understands and agrees with the plan. Reassessment Condition:: Improved - Diagnosis Diagnosis:: Dependent edema of the left lower extremity Medication reaction Hypertension - Aftercare/Follow up Instructions Aftercare/Follow-Up Instructions:: Counseled pt regarding lab results/diagnosis & need follow up, Refer to Discharge Instructions - Patient Disposition Discharge/Transfer:: Home Time:: 22:58 Condition at Disposition:: Improved ED Discharge Plan - Patient Disposition Admit/Discharge/Transfer: PT DISCHARGED HOME Condition at Disposition: Improved Instructions: Edema
[2016-07-07 22:21] LABS: HEMOGLOBIN 13.5 gm/dL (11.7-15.5); RED BLOOD COUNT 4.92 Mil/cmm (3.80-5.10)
[2016-07-07 22:22] LABS: % EOSINOPHILS 2.1 % (0.0-5.0); % LYMPHOCYTES 32.2 % (20.0-50.0); % MONOCYTES 7.9 % (2.0-10.0); % NEUTROPHILS 57.8 % (40.0-80.0); HEMATOCRIT 40.8 % (35.0-45.0); MEAN CELL VOLUME 82.9 fl (81-100); MEAN CORPUSCULAR HEMOGLOBIN 27.4 pg (27.0-31.0); MEAN CORPUSCULAR HGB CONC 33.1 pg (28.0-36.0); MEAN PLATELET VOLUME 7.9 fl; RED CELL DISTRIBUTION WIDTH 13.4 % (11.5-20.0)
[2016-07-07 22:24] LABS: PLATELET COUNT 408 Th/cmm (150-400); WHITE BLOOD COUNT 10.3 Th/cmm (4.8-10.8)
[2016-07-07 22:36] LABS: ALB/GLOB RATIO 1.3 (1.0-1.8); ALKALINE PHOSPHATASE 97 U/L (34-104); ANION GAP 12.8 (7.0-16.0); BILIRUBIN,TOTAL 0.3 mg/dL (0.3-1.0); BUN - UREA NITROGEN 28 mg/dL (7-25); CALCIUM SERUM 10.8 mg/dL (8.6-10.3); CARBON DIOXIDE 27.6 mEq/L (21.0-31.0); CHLORIDE 102 mEq/L (98-107); GLUCOSE 118 mg/dL (70-105); POTASSIUM SERUM 3.4 mEq/L (3.5-5.1); SGOT 16 U/L (13-39); SGPT/ALT 18 U/L (7-52); SODIUM SERUM 139 mEq/L (136-145)
[2016-07-07 22:37] LABS: URINE COLOR YELLOW
[2016-07-07 22:38] LABS: URINE BILIRUBIN NEGATIVE (NEGATIVE); URINE BLOOD TRACE (NEGATIVE); URINE GLUCOSE (UA) NEGATIVE (NEGATIVE); URINE KETONE NEGATIVE (NEGATIVE); URINE PH 5.5; URINE PROTEIN NEGATIVE (NEGATIVE); URINE UROBILINOGEN 0.2 E.U./dL (0.2 - 1.0)
[2016-07-07 22:39] LABS: URINE BACTERIA FEW /hpf (NONE SEEN); URINE EPITHELIAL CELLS FEW /lpf (FEW); URINE RBC 0-2 /hpf (0-5); URINE WBC 0-2 /hpf (0-5)
--- NOTE | 2016-07-08 10:44 | Diagnostic Imaging Report ---
Left lower extremity Doppler venous ultrasound exam HISTORY: Pain/swelling Sonographic sector images were obtained through the deep venous systems of the left leg. Associated Doppler data was obtained. The exam demonstrates patency of the common femoral, superficial femoral, popliteal, and posterior tibial veins. Specifically, no thrombus is seen. There are normal compressibility and augmentation responses. IMPRESSION: Negative exam for deep vein thrombophlebitis.
== END 2016-07-07 23:25 | disposition home or self-care (01) ==
LOC: ER 21:50
DX: R60.0 Localized edema (principal); I10 Essential (primary) hypertension
CPT/HCPCS: 36415-UA; 80053-TC; 81001-TC; 83880-TC; 85025-TC; 85379-TC; 93005; 93971-TC-LT

== ENCOUNTER 2017-03-05 19:05 | Emergency (ER) | payer MEDICAID ==
--- NOTE | 2017-03-05 22:01 | ED Physician Chart ---
ED Chief Complaint/HPI - Patient Information Date Seen:: 03/05/17 Time Seen:: 21:30 Chief Complaint:: r knee swelling History of Present Illness:: Swelling of right knee 3 days duration, diffuse pain reported per patient. Allergies:: Allergies Allergy/AdvReac Type Severity Reaction Status Date / Time No Known Allergies Allergy Verified 07/07/16 21:52 Vitals:: Vital Signs - 8 hr 03/05/17 03/05/17 19:05 20:49 Temp 97.7 F 97.9 F HR 87 84 RR 19 17 BP 114/65 122/66 O2 Sat % 99 98 Historian:: Patient Review:: Nurse's Note Reviewed ED Review of Systems - Review of Systems General/Constitutional: No fever Skin: Other (Generalized swelling of right knee) Head: No headache Eyes: No loss of vision ENT: No earache Neck: No neck pain Cardio Vascular: No chest pain Pulmonary: No SOB GI: No diarrhea G/U: No dysuria Musculoskeletal: Bone or joint pain (right knee) Psychiatric: No suicidal ideation, No homicidal ideation Hematopoietic: No bruising Allergic/Immuno: No urticaria Neurological: No syncope Other: non traumatic swelling x 2 days ED Past Medical History - Past Medical History Past Medical History: No significant medical hx Family History: None Social History: No Drug Use Surgical History: None Psychiatricy History: None Medication: Reviewed (motrin use) Family Medical History - Family Member Mother History Unknown: Yes Ethnicity: Non- Living Status: Still Living Hx Family Cancer: No Hx Family Coronary Artery Disease: No Hx Family Congestive Heart Failure: No Hx Family Hypertension: Yes Hx Family Stroke: No Hx Family Diabetes: No Hx Family Seizures: No Hx Family Dementia: No Hx Family AIDS: No Hx Family HIV: No Hx Family COPD: No Hx Family Hepatitis: No Hx Family Psychiatric Problems: No Hx Family Tuberculosis: No ED Physical Exam - Physical Examination General/Constitutional: Awake, Alert Head: Atraumatic Eyes: Lids, conjuctiva normal Skin: No rash ENMT: External ears, nose nl Neck: Nontender Respiratory: Nl effort/Exclusion Cardio Vascular: RRR GI: No tenderness/rebounding/guarding : No CVA tenderness Other Extremities comments:: minimal circular swelling normal temp non red Neuro/Psych: Alert/oriented Misc: Normal back ED Labs/Radiology/EKG Results - Radiology Results Results: no acute fracture eqivocal loose body ED Assessment - Assessment This condition life threatening/high prob of deterioration: No - Procedures Procedures:: application haider off when in bed immobilizer applied cruches given instructed off elevate pmd tuesday motrin continued indocin given failue of motrin no motrin and indocin together warning regarding hot swoolen presentation needs er attention ED Septic Shock - . Is Septic Shock (SBP<90, OR Lactate>4 mmol\L) present?: No - <6hrs of presentation: Vital Signs: Vital Signs - 8 hr 03/05/17 03/05/17 19:05 20:49 Temp 97.7 F 97.9 F HR 87 84 RR 19 17 BP 114/65 122/66 O2 Sat % 99 98 ED Reassessment (Disposition) - Reassessment Reassessment:: Haider wrap and immobilized Reassessment Condition:: Improved - Aftercare/Follow up Instructions Aftercare/Follow-Up Instructions:: Counseled pt regarding lab results/diagnosis & need follow up - Patient Disposition Discharge/Transfer:: Home ED Discharge Plan - Patient Disposition Admit/Discharge/Transfer: PT DISCHARGED HOME Condition at Disposition: Stable Instructions: Arthritis, Nonspecific, [id number] Additional Instructions: follow up with your primary medical doctor or to an orthopedic doctor CONNIE take prescribed medications as ordered
--- NOTE | 2017-03-06 10:40 | Diagnostic Imaging Report ---
Right knee (3 views) HISTORY: Pain No acute bony abnormalities are seen. No definite acute fractures. Mild degenerative changes noted along the posterior margin of the patella. IMPRESSION: 1. No definite acute abnormalities. In the presence of recent trauma and persistent symptoms, a repeat radiograph in 5-7 days may be helpful for detection of a subtle or occult fracture.
== END 2017-03-05 21:05 | disposition home or self-care (01) ==
LOC: ER 19:05
DX: L03.115 Cellulitis of right lower limb (principal)
CPT/HCPCS: 73562-TC-RT; Z7502

== ENCOUNTER 2017-03-12 16:38 | Emergency (ER) | payer MEDICAID ==
--- NOTE | 2017-03-12 16:58 | ED Physician Chart ---
ED Chief Complaint/HPI - Patient Information Date Seen:: 03/12/17 Time Seen:: 16:58 Chief Complaint:: PAIN IN THE RIGHT GREAT TOE X 2 DAYS History of Present Illness:: THIS 56 YEAR OLD FEMALE PRESENTS WITH A 2 DAY HISTORY OF SEVERE PAIN IN THE RT GREAT TOE. THE ONSET WAS GRADUAL OVER THE 2 DAYS. THE PAIN IS MILD WHEN NOT WEIGHT BEARING AND A 15/10 SEVERITY WHEN WEIGHT BEARING. NO HISTORY OF RECENT TRAUMA TO THE RT GREAT TOE. ALSO HAD RECENT LOW BACK PAIN AND RT KNEE PAIN. SHE WAS SEEN HERE IN THE ER 5 DAYS AGO AND DIAGNOSED WITH ARTHRITIC PAIN IN THE RT KNEE. THE PT DENIES ANY FEVER CHILLS OR DIAPHORESIS. THE PT'S MOTHER HAS A HISTORY OF GOUT. PT HAS HAD A BUNION ON THE RT TOE FOR ABOUT THE PAST 3 YEARS WITH NO PRIOR PROBLEMS WITH PAIN PRIOR TO TWO DAYS AGO. Allergies:: Allergies Allergy/AdvReac Type Severity Reaction Status Date / Time No Known Allergies Allergy Verified 07/07/16 21:52 Vitals:: Vital Signs - 8 hr 03/12/17 16:49 Temp 98.4 F HR 107 RR 16 BP 119/79 O2 Sat % 97 Historian:: Patient (nursing triage notes reviewed on the hard copy. No entries on the chart at this time.) ED Review of Systems - Review of Systems General/Constitutional: No fever, No chills, No weight loss, No weakness, No diaphoresis, No loss of appetite, Other (mild swelling in the region of the MP joint of the big toe on the right side.) Skin: No rash, No bruising, Other (there is mild erythema over the first MP of the right great toe.) Head: No headache, No light-headedness Eyes: No loss of vision, No diplopia ENT: No earache, No sore throat, No tinnitus Neck: No neck pain, No swelling, No stiffness, Mass noted Pulmonary: No SOB, No cough, No sputum, No wheezing GI: No nausea, No vomiting, No diarrhea, No pain, No melena, No constipation, No hematemesis G/U: No dysuria, No frequency, No hematuria, No nacturia 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: Abnormal vaginal bleeding, Other (the patient has irregular menstrual periods with short periods of intermittent bleeding between periods.) Musculoskeletal: Bone or joint pain (joint pain in the first right MP of the great toe.), Back pain Psychiatric: Prior psych history, No depression, No anxiety, No suicidal ideation Hematopoietic: No bruising, No lymphadenopathy Allergic/Immuno: No urticaria, No angioedema Neurological: No syncope, No focal symptoms, No weakness, No paresthesia, No headache, No seizure, No dizziness, No confusion, No vertigo Family Medical History - Family Member Mother History Unknown: Yes Ethnicity: Non- Living Status: Still Living Hx Family Cancer: No Hx Family Coronary Artery Disease: No Hx Family Congestive Heart Failure: No Hx Family Hypertension: Yes Hx Family Stroke: No Hx Family Diabetes: No Hx Family Seizures: No Hx Family Dementia: No Hx Family AIDS: No Hx Family HIV: No Hx Family COPD: No Hx Family Hepatitis: No Hx Family Psychiatric Problems: No Hx Family Tuberculosis: No Father Living Status: Hx Family Congestive Heart Failure: Yes ED Physical Exam - Physical Examination General/Constitutional: Awake, Well-developed, well-nourished, Alert, Non-toxic appearing, Ambulatory Other Gen/Cons comments:: Patient with mild distress when there is no pressure over the right great toe. Head: Atraumatic Eyes: Lids, conjuctiva normal, PERRL, EOMI Skin: No ecchymosis, Well hydrated Other Skin comments:: Erythemic scratch that mildly erythematous discoloration over the right great toe, MP joint. ENMT: External ears, nose nl, Nasal exam nl, Lips, teeth, gums nl, Oropharynx nl , Tonsils nl Neck: Nontender, Full ROM w/o pain, No JVD, No nuchal rigidity, No mass, No stridor Respiratory: Nl effort/Exclusion, No Wheeze/Rhonchi/Rales Cardio Vascular: No murmur, gallop, rubs, NL S1 S2 Other Cardio Vascular comments:: Patient has a mild tachycardia in the 110 range with no ectopic beats. Patient has good quality pulses in all 4 extremities. GI: No tenderness/rebounding/guarding, No organomegaly, No hernia, Normal BS's, Nondistended, No mass/bruits Other GI comments:: Rectal exam deferred to my discretion. : No CVA tenderness Extremities: normal strength in all extremities, No edema Other Extremities comments:: As noted above the patient has marked tenderness on palpation over the first MP of the great right toe. There is only minimal tenderness over the adjacent bunion. Decreased plantar flexion due to pain in the right great toe. The patient has a mild effusion of the right knee and mild tenderness to palpation. Neuro/Psych: Alert/oriented, DTR's symmetric, Normal sensory exam, Judgement/ insight normal, Mood normal, Normal gait, No focal deficits Misc: Normal back, No paraspinal tenderness (no tenderness on palpation over any of the thoracic or lumbar spinous processes. No paraspinous muscle spasm.) ED Labs/Radiology/EKG Results - Lab Results Results: The time is 1825 hrs. and there has been no return of lab results. Laboratory Tests 03/12/17 03/12/17 18:43 18:43 WBC 11.9 H RBC 4.50 Hgb 12.9 Hct 38.8 L MCV 86.3 MCH 28.7 MCHC Differential 33.3 RDW 12.6 Plt Count 344 MPV 8.0 Neutrophils % 67.8 Lymphocytes % 21.6 Monocytes % 7.3 Eosinophils % 3.0 Basophils % 0.3 Uric Acid 8.8 H Laboratory Tests 03/12/17 03/12/17 18:43 18:43 WBC 11.9 H RBC 4.50 Hgb 12.9 Hct 38.8 L MCV 86.3 MCH 28.7 MCHC Differential 33.3 RDW 12.6 Plt Count 344 MPV 8.0 Neutrophils % 67.8 Lymphocytes % 21.6 Monocytes % 7.3 Eosinophils % 3.0 Basophils % 0.3 Uric Acid 8.8 H Laboratory Tests 03/12/17 03/12/17 18:43 18:43 WBC 11.9 H RBC 4.50 Hgb 12.9 Hct 38.8 L MCV 86.3 MCH 28.7 MCHC Differential 33.3 RDW 12.6 Plt Count 344 MPV 8.0 Neutrophils % 67.8 Lymphocytes % 21.6 Monocytes % 7.3 Eosinophils % 3.0 Basophils % 0.3 Uric Acid 8.8 H The CBC shows a mild leukocytosis of 11.9, no anemia and normal platelet count. Laboratory studies show the uric acid to be moderately high. 2 view X-ray studies of the right toe showed no fracture or dislocation. There are moderate degenerative changes. Impression: no acute traumatic findings. ED Assessment - Assessment General Assessment: CASE SUMMARY: THIS 56-YEAR-OLD FEMALE PRESENTS WITH A TWO DAY HISTORY OF SEVERE PAIN IN THE RIGHT GREAT TOE. There is no history of recent trauma. The patient has also experienced recent low back and right knee pain which was diagnosed as arthritis when she was seen in the ED five days ago. On physical examination there was arithmetic discoloration and mild swelling of the right great toe. On palpation there was severe tenderness. There was a mild effusion of the right knee with no erythema, and only mild tenderness to palpation. X- ray studies of the right great toe were negative for any traumatic injury. The serum uric acid was moderately elevated in the Eight range. The patient symptoms were dressed with ID morphine and PO Indomethacin. There was a presumptive diagnosis of acute gouty arthritis and the patient was discharged with a prescription for indomethacin 25 mg. Initially the patient is instructed to take 50 mg up to every eight hours for relief of pain. If she has good relief of pain she was instructed to back off 25 mg three times a day. The patient was advised to return to the emergency department if she had any significant worsening of symptoms. She was also advised to follow up with Dr. Moulton", her primary care physician this coming week. Discharged in stable condition. MDM DDX PAINFUL RT GREAT TOE: NOT acute traumatic injury based on history and - ray findings. NOT paronychia based on physical examination. NOT Cellulitis based on history and physical examination. ED Septic Shock - . Is Septic Shock (SBP<90, OR Lactate>4 mmol\\L) present?: No - <6hrs of presentation: Vital Signs: Vital Signs - 8 hr 03/12/17 16:49 Temp 98.4 F HR 107 RR 16 BP 119/79 O2 Sat % 97 ED Reassessment (Disposition) - Reassessment Reassessment Condition:: Improved - Diagnosis Diagnosis:: PRESUMPTIVE DIAGNOSIS: ACUTE GOUTY ARTHRITIS Take the indomethasin 50 mg q 8 hours. Once you have relief, decrease the dosage to 25 mg q8 hrs. ReturnTo the emergency department if your symptoms worsen. Follow-up this coming week with Dr. Camargo" for reevaluation and rheumatology referral. - Aftercare/Follow up Instructions Aftercare/Follow-Up Instructions:: Counseled pt regarding lab results/diagnosis & need follow up ED Discharge Plan - Patient Disposition Admit/Discharge/Transfer: PT DISCHARGED HOME Condition at Disposition: Stable Prescriptions: Cephalexin [Keflex] 500 mg PO QID 10 Days cap Indomethacin [Indocin] 50 mg PO Q8H PRN #20 cap PRN Reason: Pain (Severe) Instructions: Gout, [id number], Gout Additional Instructions: Pt. to DC home with prescriptions. Follow-up with primary MD.
[2017-03-12] MEDS ORDERED: Morphine Sulfate 4 mg/mL 1mL Syr ONE (18:06)
[2017-03-12 18:53] LABS: % BASOPHILS 0.3 % (0.0-2.0); % LYMPHOCYTES 21.6 % (20.0-50.0); % MONOCYTES 7.3 % (2.0-10.0); % NEUTROPHILS 67.8 % (40.0-80.0); EOSINOPHILE ABSOLUTE 0.4 Th/cmm (0.1-0.4); HEMATOCRIT 38.8 % (41.0-60); HEMOGLOBIN 12.9 gm/dL (12-16); LYMPHOCYTE ABSOLUTE 2.6 Th/cmm (1.5-3.0); MEAN CELL VOLUME 86.3 fl (81-100); MEAN CORPUSCULAR HEMOGLOBIN 28.7 pg (27.0-31.0); MEAN CORPUSCULAR HGB CONC 33.3 pg (28.0-36.0); MONOCYTE ABSOLUTE 0.9 Th/cmm (0.3-1.0); PLATELET COUNT 344 Th/cmm (150-400); RED CELL DISTRIBUTION WIDTH 12.6 % (11.5-20.0); WHITE BLOOD COUNT 11.9 Th/cmm (4.8-10.8)
--- NOTE | 2017-03-13 10:03 | Diagnostic Imaging Report ---
Right foot 3 views Indication: Pain right first MTP joint Comparison: none Findings: No evidence of an acute fracture dislocation. There is mild soft tissue swelling of the first MTP joint with small cystic changes noted in this region. There is mild hallux valgus. Large plantar calcaneal spur and small distal Achilles spur is noted. Impression: No evidence of an acute fracture. Mild soft tissue swelling of the first MTP joint with small cystic change and probable small erosions. Please cortical for etiology such as gout. Mild hallux valgus. Large plantar calcaneal spur. In the setting of trauma, if clinical symptoms persist and there is continued concern for an occult fracture, follow up exams in 5-7 days is suggested.
== END 2017-03-12 19:35 | disposition home or self-care (01) ==
LOC: ER 16:38
DX: M10.9 Gout, unspecified (principal)
CPT/HCPCS: 99285; 96374; 96375; 73660; 36415; 85025; 84550; J2405

== ENCOUNTER 2017-03-23 15:05 | Emergency (ER) | payer MEDICAID ==
--- NOTE | 2017-03-23 15:30 | ED Physician Chart ---
ED Chief Complaint/HPI - Patient Information Date Seen:: 03/23/17 Time Seen:: 15:20 Chief Complaint:: LGT Pain History of Present Illness:: onset x 2 days of LGT pain; pt has hx of Gout and was recently treated for Gouty Arthritis of her RGT; pt has no other s/s; pt is out of Gout medications; pt denies H/As, neck pain, trauma, fever, chills, cough, C/P, SOB, Abd. Pain, A/ N/V/D/C, or urinary s/s; pt is post-menopausal x 10 years; pt denies ; pt's last tetanus shot: < 5 years; UTD Allergies:: Allergies Allergy/AdvReac Type Severity Reaction Status Date / Time No Known Allergies Allergy Verified 07/07/16 21:52 Vitals:: Vital Signs - 8 hr 03/23/17 15:21 Temp 98.3 F HR 113 RR 18 BP 145/92 O2 Sat % 95 Historian:: Patient Review:: Nurse's Note Reviewed ED Review of Systems - Review of Systems General/Constitutional: No fever, No chills, No weight loss, No weakness, No diaphoresis, No edema, No loss of appetite Skin: No skin lesions, No rash, No bruising Head: No headache, No light-headedness Eyes: No loss of vision, No pain, No diplopia ENT: No earache, No nasal drainage, No sore throat, No tinnitus Neck: No neck pain, No swelling, No thyromegaly, No stiffness, No mass noted Cardio Vascular: No chest pain, No palpitations, No PND, No orthopnea, No edema Pulmonary: No SOB, No cough, No sputum, No wheezing GI: No nausea, No vomiting, No diarrhea, No pain, No melena, No hematochezia, No constipation, No hematemesis G/U: No dysuria, No frequency, No hematuria C Application Developer: No vaginal discharge, No abnormal vaginal bleed, No contraction Musculoskeletal: Bone or joint pain, No back pain, No muscle pain Endocrine: No polyuria, No polydipsia Psychiatric: No prior psych history, No depression, No anxiety, No suicidal ideation, No homicidal ideation, No auditory hallucination, No visual hallucination Hematopoietic: No bruising, No lymphadenopathy Allergic/Immuno: No urticaria, No angioedema Neurological: No syncope, No focal symptoms, No weakness, No paresthesia, No headache, No seizure, No dizziness, No confusion, No vertigo ED Past Medical History - Past Medical History Past Medical History: HTN, Dyslipidemia, Arthritis Family History: HTN Social History: Non Smoker, No Alcohol, No Drug Use, Surgical History: None Psychiatricy History: None Medication: Reviewed Family Medical History - Family Member Mother History Unknown: Yes Ethnicity: Non- Living Status: Still Living Hx Family Cancer: No Hx Family Coronary Artery Disease: No Hx Family Congestive Heart Failure: No Hx Family Hypertension: Yes Hx Family Stroke: No Hx Family Diabetes: No Hx Family Seizures: No Hx Family Dementia: No Hx Family AIDS: No Hx Family HIV: No Hx Family COPD: No Hx Family Hepatitis: No Hx Family Psychiatric Problems: No Hx Family Tuberculosis: No Father Living Status: Hx Family Congestive Heart Failure: Yes ED Physical Exam - Physical Examination General/Constitutional: Awake, Well-developed, well-nourished, Alert, No distress, GCS 15, Non-toxic appearing, Ambulatory Head: Atraumatic Eyes: Lids, conjuctiva normal, PERRL, EOMI Skin: Nl inspection, No rash, No skin lesions, No ecchymosis, Well hydrated, No lymphadenopathy ENMT: External ears, nose nl, TM canals nl, Nasal exam nl, Lips, teeth, gums nl , Oropharynx nl, Tonsils nl Neck: Nontender, Full ROM w/o pain, No JVD, No nuchal rigidity, No bruit, No mass, No stridor Other Neck comments:: Supple; no meningeal signs; no cervical tenderness; no bruits Respiratory: Nl effort/Exclusion, Clear to Auscultation, No Wheeze/Rhonchi/Rales Cardio Vascular: RRR, No murmur, gallop, rubs, NL S1 S2, Carotid/Femoral/Distal pulses equal bilaterally GI: No tenderness/rebounding/guarding, No organomegaly, No hernia, Normal BS's, Nondistended, No mass/bruits, No McBurney tenderness : No CVA tenderness Extremities: No tenderness or effusion, Full ROM, normal strength in all extremities, No edema, Normal digits & nails Other Extremities comments:: + Gouty Arthritic Changes of both Great toes; no cellulitis; no FBs; no wounds; Gait: WNL; no ligament instability; good motor, tendon, and sensory functions; good NV functions Neuro/Psych: Alert/oriented, DTR's symmetric, Normal sensory exam, Normal motor strength, Judgement/insight normal, Mood normal, Normal gait, No focal deficits Misc: Normal back, No paraspinal tenderness ED Septic Shock - . Is Septic Shock (SBP<90, OR Lactate>4 mmol\L) present?: No - <6hrs of presentation: Vital Signs: Vital Signs - 8 hr 03/23/17 15:21 Temp 98.3 F HR 113 RR 18 BP 145/92 O2 Sat % 95 ED Reassessment (Disposition) - Reassessment Reassessment:: pt is comfortable upon discharge Reassessment Condition:: Improved - Diagnosis Diagnosis:: Dx: Gout; Gouty Arthritis; Toe/Foot pain; Medication Renewal; - Aftercare/Follow up Instructions Aftercare/Follow-Up Instructions:: Counseled pt regarding lab results/diagnosis & need follow up, Refer to Discharge Instructions, Counseled pt & family regarding lab results/diagnosis & need follow up Medication Prescribed:: Rx: Indocin 25mg po tid with meals prn pain (#30); take all medications as prescibed - Patient Disposition Discharge/Transfer:: Home Condition at Disposition:: Stable, Improved (RTER prn if existing s/s reoccur and/or get worse and/or any other new s/s occur; ACIs given for all above Dx; Refer to Configuration Consultant/Explosives Handler/Orthopedist CONNIE; F/U with PMD in one day or prn; RTER prn if concerned) ED Discharge Plan - Patient Disposition Prescriptions: Indomethacin [Indocin] 25 mg PO TID #30 cap
== END 2017-03-23 16:02 | disposition home or self-care (01) ==
LOC: ER 15:05
DX: M10.9 Gout, unspecified (principal); I10 Essential (primary) hypertension; E78.5 Hyperlipidemia, unspecified
CPT/HCPCS: Z7502

== ENCOUNTER 2018-01-10 15:33 | Emergency (ER) | payer MEDICAID | END 2018-01-10 16:30 | disposition left against medical advice (07) | LOC: ER 15:33 | DX: M79.673 Pain in unspecified foot (principal) ==